=== PATIENT | female | born 1950 ===

== ENCOUNTER 2018-04-14 12:15 | Inpatient (IN) | payer OTHER ==
[~2018-04-14] VITALS: Ht 165.1 cm; Wt 67.1 kg
[2018-04-14] MEDS ORDERED: ANASTROZOLE1 MG PO (16:12)
[2018-04-14] MEDS ORDERED: VITAMIN D31000 UNI1 PO (16:13)
== END 2018-04-22 14:13 | DRG 742 ==
LOC: OB/GYN 04-17 05:46 → O/R 04-17 05:46 → SURG 04-17 08:45 → OB/GYN 04-17 15:56
PROVIDERS: Obstetrics & Gynecology; Surgery
PROC: 0UQF7ZZ Repair Cul-de-sac, Via Natural or Artificial Opening (ICD-10-PCS; 2018-04-17)
PROC: 0JQC0ZZ Repair Pelvic Region Subcutaneous Tissue and Fascia, Open Approach (ICD-10-PCS; 2018-04-17)
PROC: 0DQP7ZZ Repair Rectum, Via Natural or Artificial Opening (ICD-10-PCS; 2018-04-17)
PROC: 0HQ9XZZ Repair Perineum Skin, External Approach (ICD-10-PCS; 2018-04-17)
PROC: 0TJB8ZZ Inspection of Bladder, Via Natural or Artificial Opening Endoscopic (ICD-10-PCS; 2018-04-17)
PROC: 0UT97ZZ Resection of Uterus, Via Natural or Artificial Opening (ICD-10-PCS; principal; 2018-04-17 08:45)
PROC: 0UT27ZZ Resection of Bilateral Ovaries, Via Natural or Artificial Opening (ICD-10-PCS; 2018-04-17 08:45)
PROC: 0UT77ZZ Resection of Bilateral Fallopian Tubes, Via Natural or Artificial Opening (ICD-10-PCS; 2018-04-17 08:45)
DX: N81.3 Complete uterovaginal prolapse (principal); K91.72 Accidental puncture and laceration of a digestive system organ or structure during other procedure; N87.1 Moderate cervical dysplasia; D25.1 Intramural leiomyoma of uterus; N83.291 Other ovarian cyst, right side; N94.89 Other specified conditions associated with female genital organs and menstrual cycle